=== PATIENT | male | born 1985 | race Caucasian/White ===

== ENCOUNTER 2019-06-01 13:36 | Emergency (ER) | payer MEDICAID ==
[~2019-06-01] VITALS: Ht 172.7 cm; Wt 67.6 kg
[2019-06-01 14:18] LABS: BASOPHILS # (AUTO) 0.09 x10^3/uL (0-0.1); BASOPHILS % (AUTO) 2 % (0-1); EOSINOPHILS # (AUTO) 0.22 x10^3/uL (0-0.4); EOSINOPHILS % (AUTO) 4 % (1-7); LYMPHOCYTES # (AUTO) 2.19 x10^3/uL (1-3.4); LYMPHOCYTES % (AUTO) 36 % (22-44); MD NO; MEAN CORPUSCULAR HEMOGLOBIN 31.6 pg (27.5-34.5); MEAN CORPUSCULAR HGB CONC 33.4 g/dL (33.2-36.2); MEAN CORPUSCULAR VOLUME 94.6 fL (81-97); MEAN PLATELET VOLUME 7.3 fL (7.4-10.4); MONOCYTES # (AUTO) 0.37 x10^3/uL (0.2-0.8); MONOCYTES % (AUTO) 6 % (2-9); NEUTROPHILS # (AUTO) 3.24 x10^3/uL (1.8-6.8); NEUTROPHILS % (AUTO) 53 % (42-75); PLATELET COUNT 324 x10^3/uL (130-400); RED BLOOD COUNT 4.23 x10^6/uL (4.38-5.82)
[2019-06-01 14:27] LABS: ALBUMIN 4.1 g/dL (3.4-5.0); ANION GAP 4 mmol/L (5-15); CHLORIDE 108 mmol/L (98-107); CREATININE 0.91 mg/dL (0.7-1.3)
--- NOTE | 2019-06-01 14:42 | NUR ---
pt to room with slow steady gait. pt states he has a kidney stone with hx of. family is at bedside. last oral intake of food was 8 pm last night and fluids was 4 oz of water 1 hour guard captain to er. Addendum: 06/01/19 at 1445 by ESSENCE note made by lzu lewis
[2019-06-01] MEDS ORDERED: KETOROLAC 30 MG/1 ML ONE (14:48)
[2019-06-01] MEDS ORDERED: HYDROmorphone 1 MG/ML, 1ML INJ ONE ×2 (14:48→15:24)
[2019-06-01] MEDS ORDERED: ONDANSETRON 2MG/ML, 2ML ONE (14:55)
[2019-06-01] MEDS: HYDROmorphone 2 MG/ML, 1ML IVPush PRN ×2 (14:58→15:45)
[2019-06-01] MEDS ORDERED: KETOROLAC 30 MG/1 ML IVPush ONE (15:00)
[2019-06-01] MEDS ORDERED: ONDANSETRON 2MG/ML, 2ML IVPush ONE (15:00)
[2019-06-01 15:48] LABS: MICROSCOPIC NOT IND
[2019-06-01 15:51] LABS: CULTURE INDICATED? NO
[2019-06-01 16:12] VITALS: BP 122/89
== END 2019-06-01 16:53 | disposition home or self-care (01) ==
LOC: ED 14:00
DX: N20.0 Calculus of kidney (principal); R11.2 Nausea with vomiting, unspecified
CPT/HCPCS: 36415; 74018; 76770; 80048; 81003; 82040; 85025; 96374; 96375; 96376; 99285; J1170; J1885; J2405

== ENCOUNTER 2019-09-02 15:22 | Emergency (ER) | payer MEDICAID ==
[~2019-09-02] VITALS: Ht 172.7 cm; Wt 64.4 kg
[2019-09-02 15:24] VITALS: BP 120/78
--- NOTE | 2019-09-02 15:33 | NUR ---
DENTAL PAIN X TWO DAYS. DENIES FEVER OR TROUBLE SWALLOWING
== END 2019-09-02 15:56 | disposition home or self-care (01) ==
LOC: ED 15:47
DX: K02.9 Dental caries, unspecified (principal); K08.89 Other specified disorders of teeth and supporting structures; Z87.891 Personal history of nicotine dependence
CPT/HCPCS: 99283